=== PATIENT | male | born 1970 | race Caucasian/White ===

== ENCOUNTER 2018-05-08 14:09 | Emergency (ER) | payer OTHER ==
[~2018-05-08] VITALS: Ht 177.8 cm; Wt 99.8 kg
[2018-05-08] MEDS ORDERED: ZESTRIL5 MG PO (14:18)
--- NOTE | 2018-05-08 15:53 | EKG ---
[facility] [address] [facility] [place] [address] Signed Sinus rhythm with occasional premature ventricular complexes Otherwise normal ECG No previous ECGs available Confirmed by KAN PEREIRA MD ([id number] on 05/08/2018 3:53:15 PM Electronically Signed By: KAN PEREIRA MD 05/08/18 1553 PATIENT NAME: TYSON OLIVO Electrocardiogram DATE OF : 74 PHYSICIAN: KAN PEREIRA MD REPORT #: [id number] REPORT IS CONFIDENTIAL AND NOT TO BE RELEASED WITHOUT AUTHORIZATION
== END 2018-05-08 17:48 | disposition home or self-care (01) ==
LOC: ED 14:09
DX: R07.9 Chest pain, unspecified (principal); Z79.899 Other long term (current) drug therapy
CPT/HCPCS: 36415; 71045; 80053; 84484; 85025; 93005; 93010; 99285-25